=== PATIENT | female | born 1955 | race Caucasian/White ===

== ENCOUNTER 2021-03-19 22:39 | Emergency (ER) | payer MEDICARE ==
[~2021-03-19 22:39] MED LIST: DULERA 200 MCG8.8 GM PO; DUONEB 2.5-0.5M1 AMP NEB; LEVAQUIN750 MG PO; LOPRESSOR50 MG PO; MIRALAX17 GM PO; MUCINEX 600MG600 MG PO; PEPCID AC20 MG PO; PREDNISONE5 MG PO; PROZAC40 MG PO; TRAZODONE 50MG50 MG PO
[2021-03-19 23:18] LABS: BASOPHIL 0.8 % (0-2); EOSINOPHIL 2.2 % (0-5); HCT 45.8 % (37.0-47.0); HGB 14.4 g/dl (12.5-16.0); LYMPHOCYTE 12.6 % (15-48); MCH 30.4 pg (25.0-31.0); MCHC 31.4 g/dL (32.0-36.0); MCV 96.8 fL (78.0-100.0); MONOCYTE 14.2 % (0-12); NEUTROPHIL 69.5 % (41-80); NRBC 0; PLT 292 K/uL (150-400); RBC 4.73 M/uL (4.20-5.40); RDW 13.2 % (11.5-14.0); WBC 8.7 K/uL (4.0-10.5)
[2021-03-19 23:53] LABS: ALBUMIN 3.4 g/dL (3.4-5.0); BILIRUBIN - TOTAL 0.3 mg/dL (0.2-1.0); BUN/CREAT RATIO (CALC) 22.4 RATIO; CREATININE 0.49 mg/dL (0.51-0.95); GLOBULIN (CALCULATION) 3.7 g/dL; POTASSIUM 4.4 mmol/L (3.5-5.1); TOTAL PROTEIN 7.1 g/dL (6.4-8.2)
[2021-03-20 02:40] LABS: BILIRUBIN NEGATIVE (NEGATIVE); BLOOD NEGATIVE Ery/uL (NEGATIVE); CLARITY CLEAR (CLEAR); COLOR YELLOW (YELLOW); GLUCOSE (U) NORMAL (NORMAL); LEUKOCYTES NEGATIVE Leu/uL (NEGATIVE); NITRITE NEGATIVE (NEGATIVE); PROTEIN 2+ mg/dL (NEGATIVE); UROBILINOGEN 0.2 mg/dL (0.2-1.0)
[2021-03-20 02:46] LABS: BACTERIA TRACE; URINARY WBC RARE
== END 2021-03-20 03:55 | disposition home or self-care (01) ==
LOC: FER 22:39
PROVIDERS: Emergency Medicine
DX: R06.00 Dyspnea, unspecified (principal); R07.89 Other chest pain; R05 Cough; J44.9 Chronic obstructive pulmonary disease, unspecified; F17.200 Nicotine dependence, unspecified, uncomplicated; Z20.822 Contact with and (suspected) exposure to COVID-19
CPT/HCPCS: 36415; 71045; 80053; 81001; 84484; 85025; 93005; 94640; 94664; J2405; J2930; J7030; U0002